=== PATIENT | male | born 1980 | race Caucasian/White ===

== ENCOUNTER → 2019-10-24 | Outpatient (CLI) | payer OTHER ==
[~2019-10-24] MED LIST: IOHEXOL 240 MG/ML 50ML VIAL. ONE; IOHEXOL 240 MG/ML 50ML VIAL. PO ONE; IOHEXOL 300 MG/ML 75 ML VIAL. IV ONE
--- NOTE | 2019-10-24 11:42 | RAD ---
CT of the abdomen and pelvis with contrast 10/24/2019 11:24 AM Indication: Chronic abdominal pain. Crohn's disease. History of partial colectomy. History of appendectomy. Comparison study: None Technique: Multidetector CT imaging of the abdomen and pelvis was performed following the administration of IV contrast. Findings: The partially visualized lung bases demonstrate no acute abnormality. Within the inferior right liver, adjacent to the gallbladder fossa there is a 1.6 cm somewhat ill-defined, mildly heterogenous hypodense mass. The appearance is nonspecific. MRI recommended. There is no evidence of bowel obstruction. Mildly increased stool is noted throughout the colon. Correlate with clinical evidence of constipation. No free fluid or free air is seen in the abdomen or pelvis. The bladder is grossly unremarkable. No abnormal bowel thickening or enhancement is appreciated. Portal vein is patent. Circumaortic left renal vein noted. This is a normal variant. No acute osseous changes are identified. Impression: 1. 1.6 cm hypodense, somewhat ill-defined mildly heterogenous mass within the inferior right liver. While statistically this is most likely benign, given appearance further characterization with hepatic MRI is recommended. 2. Mildly increased stool throughout the colon. Correlate with clinical evidence of constipation. CT DOSING PQRS STATEMENT: One or more of the following individualized dose reduction techniques were utilized for this examination: 1. Automated exposure control 2. Adjustment of the mA and/or kV according to patient size 3. Use of iterative reconstruction technique Electronically signed by: Bubba Wesley MD (10/24/2019 11:39 AM) [id number]
== END | disposition home or self-care (01) ==
LOC: CT 07:50 → EEVIPCON 07:50
PROVIDERS: ATTEND Family Medicine
DX: K59.00 Constipation, unspecified (principal); R16.0 Hepatomegaly, not elsewhere classified
CPT/HCPCS: 74177; Q9966